=== PATIENT | male | born 1960 | race Caucasian/White ===

== ENCOUNTER 2020-10-04 18:15 | Emergency (ER) | payer BC ==
--- NOTE | 2020-10-04 18:46 | ER Document Report ---
ED Medical Screen (RME) - General Chief Complaint: Shortness Of Breath Stated Complaint: WEAKNESS Time Seen by Provider: 10/04/20 18:43 Primary Care Provider: MELLO JONES MD [Primary Care Provider] - Follow up as needed Information source: Patient Notes: Patient presents complaining of difficulty breathing and cough for the past 6 days. Patient was recently diagnosed with Covid 5 days ago. Patient states that he did have some chest pain for 3 days although today it seems to be better. Patient reports nausea without vomiting or diarrhea. Patient denies any chronic underlying medical conditions. I have greeted and performed a rapid initial assessment of this patient. A comprehensive ED assessment and evaluation of the patient, analysis of test results and completion of the medical decision making process will be conducted by additional ED providers. TRAVEL OUTSIDE OF THE [place] IN LAST 30 DAYS: No - Related Data Allergies/Adverse Reactions: No Known Allergies Allergy (Verified 10/04/20 18:41) Past Medical History - Past Medical History Cardiac Medical History: Denies: Hx Coronary Artery Disease, Hx Heart Attack, Hx Hypertension Pulmonary Medical History: Denies: Hx Asthma, Hx Bronchitis, Hx COPD, Hx Pneumonia Neurological Medical History: Denies: Hx Cerebrovascular Accident, Hx Seizures Musculoskeltal Medical History: Denies Hx Arthritis - Immunizations Hx Diphtheria, Pertussis, Tetanus Vaccination: Yes Physical Exam - Vital signs Vitals: Temp Pulse Resp BP Pulse Ox 98.2 F 97 20 109/73 95 10/04/20 18:21 10/04/20 18:21 10/04/20 18:21 10/04/20 18:21 10/04/20 18:21 - Respiratory Respiratory status: No respiratory distress Breath sounds: Nonproductive cough - Cardiovascular Rhythm: Regular Heart sounds: S1 appreciated, S2 appreciated Course - Vital Signs Vital signs: Temp Pulse Resp BP Pulse Ox 98.2 F 97 20 109/73 95 10/04/20 18:21 10/04/20 18:21 10/04/20 18:21 10/04/20 18:21 10/04/20 18:21 Doctor's Discharge - Discharge Referrals: MELLO JONES MD [Primary Care Provider] - Follow up as needed
--- NOTE | 2020-10-04 19:43 | RADIOLOGY REPORT (SQ) ---
EXAM DESCRIPTION: CHEST SINGLE VIEW IMAGES COMPLETED DATE/TIME: 10/04/2020 6:19 pm REASON FOR STUDY: cp, sob, cough, hx covid COMPARISON: None. EXAM PARAMETERS: NUMBER OF VIEWS: One view. TECHNIQUE: Single frontal radiographic view of the chest acquired. RADIATION DOSE: NA LIMITATIONS: None. FINDINGS: LUNGS AND PLEURA: Patchy peripheral opacities in the left mid to lower lung suggestive of pneumonia. No pleural effusion or pneumothorax. Right lung is clear. MEDIASTINUM AND HILAR STRUCTURES: No masses. Contour normal. HEART AND VASCULAR STRUCTURES: Heart normal in size. Normal vasculature. BONES: No acute findings. HARDWARE: None in the chest. OTHER: No other significant finding. IMPRESSION: Patchy peripheral opacities in the left lung suspicious for pneumonia. TECHNICAL DOCUMENTATION: JOB ID: [id number] 2010 [employer]- All Rights Reserved Reading location - IP/workstation name: [email or web address]
[2020-10-04] MEDS ORDERED: CEFTRIAXONE 1 GM/D5W RTU 1 GM/50 ML RTUPB IV ONE ×2 (19:57→23:52)
--- NOTE | 2020-10-04 22:59 | EKG REPORT ---
SEVERITY:- ABNORMAL ECG - SINUS RHYTHM NONSPECIFIC ST-T CHANGES- INFERIOR LEADS : Confirmed by: Dell Plummer MD 04-Oct-2020 22:58:34
[2020-10-04 23:07] LABS: ABSOLUTE EOSINOPHILS # (AUTO) 0.2 10^3/uL (0.0-0.6); ABSOLUTE LYMPHOCYTES (AUTO) 1.5 10^3/uL (0.5-4.7); ABSOLUTE NEUT (AUTO) 4.6 10^3/uL (1.7-8.2); BASOPHILS % (AUTO) 0.6 % (0-2); EOSINOPHILS % (AUTO) 2.3 % (0-6); HEMOGLOBIN 15.1 g/dL (13.5-17.0); LYMPHOCYTES % (AUTO) 20.2 % (13-45); MEAN CORPUSCULAR HGB CONC 34.3 g/dL (32.0-36.0); MEAN CORPUSCULAR VOLUME 93 fl (80-97); MONOCYTES % (AUTO) 14.3 % (3-13); PLATELET COUNT 265 10^3/uL (150-450); RED BLOOD COUNT 4.72 10^6/uL (4.35-5.55); RED CELL DISTRIBUTION WIDTH 13.2 % (11.5-14.0); SEGMENTED NEUTROPHILS % (AUTO) 62.6 % (42-78); TOTAL CELLS COUNTED % (AUTO) 100 %; WHITE BLOOD COUNT 7.3 10^3/uL (4.0-10.5)
[2020-10-04 23:23] LABS: ALBUMIN 4.5 g/dL (3.5-5.0); ALKALINE PHOSPHATASE 126 U/L (38-126); ANION GAP 11 (5-19); ASPARTATE AMINO TRANSFERASE 43 U/L (17-59); BILIRUBIN,DIRECT 0.1 mg/dL (0.0-0.4); BILIRUBIN,TOTAL 0.7 mg/dL (0.2-1.3); BLOOD UREA NITROGEN 16 mg/dL (7-20); CALCIUM 9.5 mg/dL (8.4-10.2); CARBON DIOXIDE 28 mmol/L (22-30); CHLORIDE 101 mmol/L (98-107); GLUCOSE 104 mg/dL (75-110); POTASSIUM 4.3 mmol/L (3.6-5.0); TOTAL PROTEIN 7.9 g/dL (6.3-8.2)
[2020-10-05] MEDS ORDERED: DEXAMETHASONE SOD PHOSPHATE INJ 4 MG/1 ML VIAL IV ONE (01:10)
--- NOTE | 2020-10-05 01:13 | ER Document Report ---
Entered by ROLF RAMOS SCRIBE 10/05/20 0110 Acting as scribe for:LIANA MCCOY, DO ED General - General Chief Complaint: Shortness Of Breath Stated Complaint: WEAKNESS Time Seen by Provider: 10/04/20 18:43 Primary Care Provider: MELLO JONES MD [ACTIVE STAFF] - Follow up as needed Information source: Patient Notes: This 60 year old male patient presents to the emergency department today with chief complaint of body aches and fatigue. Patient states he was tested positive for covid around x5 days ago at the [facility]. Patient reports shortness of breath and cough. Denies vomiting and diarrhea. Patient denies any significant medical history and is not on any medications. TRAVEL OUTSIDE OF THE [place] IN LAST 30 DAYS: No - Related Data Allergies/Adverse Reactions: No Known Allergies Allergy (Verified 10/04/20 18:45) Home Medications: denies Past Medical History - General Information source: Patient - Social History Smoking Status: Never Smoker Cigarette use (# per day): No Chew tobacco use (# tins/day): No Frequency of alcohol use: None Drug Abuse: None Family History: Reviewed & Not Pertinent Patient has homicidal ideation: No - Past Medical History Cardiac Medical History: Denies: Hx Coronary Artery Disease, Hx Heart Attack, Hx Hypertension Pulmonary Medical History: Denies: Hx Asthma, Hx Bronchitis, Hx COPD, Hx Pneumonia Neurological Medical History: Denies: Hx Cerebrovascular Accident, Hx Seizures Musculoskeletal Medical History: Denies Hx Arthritis - Immunizations Hx Diphtheria, Pertussis, Tetanus Vaccination: Yes Review of Systems - Review of Systems Constitutional: See HPI, Weakness, Recent illness EENT: No symptoms reported Cardiovascular: No symptoms reported Respiratory: See HPI, Cough, Short of breath Gastrointestinal: See HPI. denies: Diarrhea, Vomiting Genitourinary: No symptoms reported Male Genitourinary: No symptoms reported Musculoskeletal: No symptoms reported Skin: No symptoms reported Hematologic/Lymphatic: No symptoms reported Neurological/Psychological: No symptoms reported -: Yes All other systems reviewed and negative Physical Exam - Vital signs Vitals: Temp Pulse Resp BP Pulse Ox 98.2 F 97 20 109/73 95 10/04/20 18:21 10/04/20 18:21 10/04/20 18:21 10/04/20 18:21 10/04/20 18:21 - General General appearance: Appears well, Alert - HEENT Head: Normocephalic, Atraumatic Eyes: Normal Pupils: PERRL - Respiratory Respiratory status: No respiratory distress Chest status: Nontender Breath sounds: Normal Chest palpation: Normal - Cardiovascular Rhythm: Regular Heart sounds: Normal auscultation Murmur: No - Abdominal Inspection: Normal Distension: No distension Bowel sounds: Normal Tenderness: Nontender - Extremities General upper extremity: Normal inspection, Normal ROM General lower extremity: Normal inspection, Normal ROM. No: Edema - Neurological Neuro grossly intact: Yes Cognition: Normal Orientation: AAOx4 [place] Coma Scale Eye Opening: Spontaneous [place] Coma Scale Verbal: Oriented [place] Coma Scale Motor: Obeys Commands R[place]wn Coma Scale Total: 15 Speech: Normal Motor strength normal: LUE, RUE, LLE, RLE Sensory: Normal - Psychological Associated symptoms: Normal affect, Normal mood - Skin Skin Temperature: Warm Skin Moisture: Dry Skin Color: Normal Course - Re-evaluation Re-evalutation: 10/05/20 02:33 MDM 60 year old male tested + for covid in the past week. Feels a bit run down and some cough and xray here shows perhaps left base infiltrate. Nontoxic here and no pe by vitals and history. Discussed importance of follow up and he expressed understanding. - Vital Signs Vital signs: Temp Pulse Resp BP Pulse Ox 98.2 F 97 20 109/73 95 10/04/20 18:21 10/04/20 18:21 10/04/20 18:21 10/04/20 18:21 10/04/20 18:21 - Laboratory Result Diagrams: 10/04/20 22:47 10/04/20 22:47 Laboratory results interpreted by me: 10/04/20 10/04/20 10/04/20 22:47 22:47 22:47 [place] % (Auto) 14.3 H D-Dimer 1.55 H C-Reactive Protein 52.0 H - Diagnostic Test Radiology reviewed: Image reviewed, Reports reviewed - EKG Interpretation by Me EKG shows normal: Sinus rhythm Rate: Normal Rhythm: NSR - NSR NL [place] [address] elevation or depression my interpretation. Discharge - Discharge Clinical Impression: COVID-19 Pneumonia Qualifiers: Pneumonia type: due to unspecified organism Laterality: left Lung location: lower lobe of lung Qualified Code(s): J18.9 - Pneumonia, unspecified organism Condition: Stable Disposition: HOME, SELF-CARE Instructions: COVID-19 Guidance for Persons Under Investigation, Pneumonia ([facility]), Viral Pneumonia ([facility]) Additional Instructions: Rest, plenty of fluids. Take tylenol or ibuprofen for fever or achiness. Take 1 gram of vitamin c daily Take 50 mg of zinc daily Finish the antibiotic. Please return here for chest pain, shortness of breath, other problems or other concerns. Your medicine has been sent to your pharmacy. Prescriptions: Albuterol Sulfate [Albuterol Sulfate Hfa] 2 puff IH TID #1 hfa.aer.ad Zinc [Zinc Chelated] 50 mg PO DAILY #14 tablet Azithromycin [Zithromax 250 mg Tablet] 250 mg PO ASDIR PRN #6 tablet PRN Reason: Referrals: MELLO JONES MD [ACTIVE STAFF] - Follow up as needed I personally performed the services described in the documentation, reviewed and edited the documentation which was dictated to the scribe in my presence, and it accurately records my words and actions.
[2020-10-05 03:25] VITALS: BP 120/75
== END 2020-10-05 03:25 | disposition home or self-care (01) ==
LOC: ER 18:15
DX: U07.1 COVID-19 (principal); J18.9 Pneumonia, unspecified organism; R06.02 Shortness of breath; R05 Cough; R53.1 Weakness
CPT/HCPCS: 93005; 99285; 36415; 85025; 86140; 80053; 84484; 85379; 71045; 93010; J1100; J0696